=== PATIENT | male | born 1955 | race Caucasian/White ===

== ENCOUNTER → 2016-11-26 | Outpatient (CLI) | payer OTHER ==
[~2016-11-26] MED LIST: ALBUTEROL0.09 MG/A2 IH; ANUSOL-HC25 MG R; ASPIRIN1 POW PO; BIAXIN500 MG PO; COLCHICINE0.6 MG PO; COMBIVENT1 ARO IH; INDOCIN25 MG PO; ISOSORBIDE30 MG PO; KEFLEX500 MG PO; LEVOFLOXACIN500 MG PO; LISINOPRIL2.5 MG PO; MEDROL DOSEPAK4 MG PO; MOTRIN800 MG PO; NEXIUM40 MG PO; NITROGLYCERIN0.4 MG SL; PERCOCET 325 MG1 TA7 PO; PREDNICOT10 MG PO; TICAGRELOR PO; ZITHROMAX Z PA250 MG PO; ZOCOR40 MG PO; ZYLOPRIM100 MG PO
[2016-11-26 09:00] LABS: HEMATOCRIT 43.1 % (42.0-52.0); HEMOGLOBIN 14.3 g/dl (14.0-18.0); MEAN CELL VOLUME 94.5 fl (80.0-94.0); MEAN CORPUSCULAR HGB 31.4 pg (27.0-31.0); MEAN CORPUSCULAR HGB CONC 33.2 g/dl (33.0-37.0); RED BLOOD COUNT 4.56 10*6/uL (4.50-5.90); RED CELL DISTRI WIDTH 13.2 % (0-14.5); WHITE BLOOD COUNT 4.9 10*3/uL (4.8-10.8)
[2016-11-26 09:33] LABS: ALKALINE PHOSPHATASE 61 U/L (45-117); BUN 23 mg/dl (7-24); CHLORIDE 107 mmol/L (98-107); CHOLESTEROL 198 mg/dL (<200); CREATININE 1.18 mg/dL (0.70-1.30); HDL CHOLESTEROL 45 mg/dl (40-60); LDL CHOLESTEROL 102 mg/dL (9-159); POTASSIUM 4.2 mmol/L (3.5-5.1); SGOT/AST 24 IU/L (3-35); SGPT/ALT 33 U/L (12-78); SODIUM 144 mmol/L (136-145); TOTAL PROTEIN 7.8 gm/dL (6.4-8.2); TRIGLYCERIDES 256 mg/dl (<150); VLDL CHOLESTEROL 51 mg/dL (6-40)
[2016-11-26 09:39] LABS: THYROID STIM HORMONE (HS) 0.375 uIU/ml (0.358-4.75)
[2016-11-26 10:13] LABS: VITAMIN D, 25-HYDROXY 26.5 ng/mL (30-100)
== END | disposition home or self-care (01) ==
LOC: LAB 08:17
PROVIDERS: Internal Medicine
DX: E78.2 Mixed hyperlipidemia (principal); I25.10 Atherosclerotic heart disease of native coronary artery without angina pectoris; M10.9 Gout, unspecified; E55.9 Vitamin D deficiency, unspecified

== ENCOUNTER → 2017-07-24 | Outpatient (CLI) | payer OTHER | END | disposition home or self-care (01) | LOC: LAB 10:28 | DX: R10.84 Generalized abdominal pain (principal) ==

== ENCOUNTER → 2018-07-24 | Outpatient (CLI) | payer OTHER | END | disposition home or self-care (01) | LOC: RAD 10:51 | DX: M47.892 Other spondylosis, cervical region (principal); R20.0 Anesthesia of skin ==

== ENCOUNTER 2018-10-21 12:29 | Inpatient (IN) | payer OTHER ==
[~2018-10-21] VITALS: Ht 177.8 cm; Wt 88.5 kg
[2018-10-21 12:32] VITALS: BP 136/98
[2018-10-21 12:49] LABS: BASO % 0.3 % (0.0-1.0); EOS % 0.4 % (1.0-4.0); HEMATOCRIT 43.3 % (42.0-52.0); HEMOGLOBIN 14.9 g/dl (14.0-18.0); LYMPH # 1.5 10*3/uL (1.3-4.4); LYMPH % 19.7 % (27.0-41.0); MEAN CELL VOLUME 93.7 fl (80.0-94.0); MEAN CORPUSCULAR HGB 32.3 pg (27.0-31.0); MEAN CORPUSCULAR HGB CONC 34.4 g/dl (33.0-37.0); MEAN PLATELET VOLUME 9.9 fl (9.6-12.3); MONO # 0.5 10*3/uL (0.1-1.0); MONO % 6.2 % (3.0-9.0); NEUT # 5.6 10*3/uL (2.3-7.9); NEUT % 72.9 % (47.0-73.0); PLATELET COUNT AUTOMATED 270 10*3/uL (130-400); RED BLOOD COUNT 4.62 10*6/uL (4.50-5.90); RED CELL DISTRI WIDTH 13.2 % (0-14.5); WHITE BLOOD COUNT 7.6 10*3/uL (4.8-10.8)
[2018-10-21 13:00] LABS: ACT PARTIAL THROMBO TIME 23.1 SECONDS (20.0-32.1); ALBUMIN 4.5 gm/dl (3.1-4.5); BUN 20 mg/dl (7-24); CHLORIDE 105 mmol/L (98-107); CREATININE 1.34 mg/dL (0.70-1.30); INTERNATIONAL NORM RATIO 0.9 (2.0-3.5); POTASSIUM 4.2 mmol/L (3.5-5.1); SGOT/AST 17 IU/L (3-35); SGPT/ALT 33 U/L (12-78); SODIUM 137 mmol/L (136-145); TOTAL PROTEIN 8.5 gm/dL (6.4-8.2)
[2018-10-21 13:04] LABS: ALKALINE PHOSPHATASE 64 U/L (45-117); TROPONIN I < 0.015 ng/ml (<0.045)
[2018-10-21 13:36] VITALS: BP 138/88
[2018-10-21 14:16] VITALS: BP 133/90
[2018-10-21 16:00] VITALS: BP 137/73
[2018-10-21] MEDS ORDERED: ALLOPURINOL100 MG PO (17:15)
[2018-10-21 20:00] VITALS: BP 116/69
[2018-10-22] VITALS: BP 102/71
== END 2018-10-22 05:48 | disposition short-term general hospital (02) | DRG 280 ==
LOC: ED 12:29 → 5E 13:32 → EDHOLD 13:32 → 5E 14:06
PROVIDERS: Emergency Medicine; ADMIT Internal Medicine
DX: I21.4 Non-ST elevation (NSTEMI) myocardial infarction (principal); N17.0 Acute kidney failure with tubular necrosis; E78.5 Hyperlipidemia, unspecified; I25.110 Atherosclerotic heart disease of native coronary artery with unstable angina pectoris; R00.1 Bradycardia, unspecified; K21.9 Gastro-esophageal reflux disease without esophagitis; M10.9 Gout, unspecified; Z95.5 Presence of coronary angioplasty implant and graft; Z87.891 Personal history of nicotine dependence; Z83.3 Family history of diabetes mellitus; I25.2 Old myocardial infarction; Z79.82 Long term (current) use of aspirin

== ENCOUNTER → 2018-12-18 | Outpatient (CLI) | payer OTHER ==
[~2018-12-18] MED LIST changes: +ALLOPURINOL100 MG PO
== END | disposition home or self-care (01) ==
LOC: CARD 07:59
DX: I25.10 Atherosclerotic heart disease of native coronary artery without angina pectoris (principal); I11.9 Hypertensive heart disease without heart failure

== ENCOUNTER 2019-12-18 05:08 | Emergency (ER) | payer OTHER ==
[~2019-12-18] VITALS: Ht 170.1 cm; Wt 83.9 kg
[2019-12-18] MEDS ORDERED: AUGMENTIN 875875 MG PO (05:34)
== END 2019-12-18 05:55 | disposition home or self-care (01) ==
LOC: ED 05:08
DX: J01.90 Acute sinusitis, unspecified (principal); J06.9 Acute upper respiratory infection, unspecified; J02.9 Acute pharyngitis, unspecified; Z79.899 Other long term (current) drug therapy; Z79.82 Long term (current) use of aspirin; Z20.828 Contact with and (suspected) exposure to other viral communicable diseases

== ENCOUNTER → 2020-01-28 | Outpatient (CLI) | payer OTHER ==
[~2020-01-28] MED LIST changes: +AUGMENTIN 875875 MG PO
== END | disposition home or self-care (01) ==
LOC: COVID19 15:44
PROVIDERS: ATTEND Physician Assistant
DX: U07.1 COVID-19 (principal); R69 Illness, unspecified

== ENCOUNTER → 2022-07-12 | Outpatient (CLI) | payer MEDICARE ==
[2022-07-12 09:33] LABS: HEMATOCRIT 41.3 % (42.0-52.0); MEAN CELL VOLUME 95.6 fl (80.0-94.0); MEAN CORPUSCULAR HGB 31.7 pg (27.0-31.0); MEAN CORPUSCULAR HGB CONC 33.2 g/dl (33.0-37.0); MEAN PLATELET VOLUME 9.8 fl (9.6-12.3); RED BLOOD COUNT 4.32 10*6/uL (4.50-5.90); RED CELL DISTRI WIDTH 13.7 % (0-14.5)
[2022-07-12 10:06] LABS: ALKALINE PHOSPHATASE 58 U/L (46-116); BUN 13 mg/dl (9-23); CHLORIDE 107 mmol/L (98-107); CHOLESTEROL 119 mg/dL (<200); LDL CHOLESTEROL 64 mg/dL (9-159); POTASSIUM 4.4 mmol/L (3.4-5.1); SGPT/ALT 31 U/L (10-49); TOTAL PROTEIN 7.3 gm/dL (6.0-8.0); TRIGLYCERIDES 78 mg/dl (<150)
[2022-07-12 10:44] LABS: FREE T4 0.97 ng/dl (0.89-1.76)
== END | disposition home or self-care (01) ==
LOC: LAB 08:49
PROVIDERS: ATTEND Physician Assistant
DX: Z12.5 Encounter for screening for malignant neoplasm of prostate (principal); I10 Essential (primary) hypertension; E78.2 Mixed hyperlipidemia; E55.9 Vitamin D deficiency, unspecified; R73.9 Hyperglycemia, unspecified; Z87.891 Personal history of nicotine dependence; Z13.6 Encounter for screening for cardiovascular disorders

== ENCOUNTER → 2022-07-22 | Outpatient (CLI) | payer MEDICARE ==
[~2022-07-22] MED LIST changes: +BRILINTA60 MG PO; +LIPITOR40 MG PO; +TOPROL XL25 MG PO; +VASCEPA1 G1 PO
== END | disposition home or self-care (01) ==
LOC: CARD 07:48
PROVIDERS: ATTEND Internal Medicine Cardiovascular Disease
DX: R94.39 Abnormal result of other cardiovascular function study (principal); R94.31 Abnormal electrocardiogram [ECG] [EKG]; R00.1 Bradycardia, unspecified; I47.20 Ventricular tachycardia, unspecified

== ENCOUNTER 2022-07-25 10:29 | Inpatient (IN) | payer MEDICARE ==
[~2022-07-25] VITALS: Ht 170.1 cm; Wt 86.0 kg
[2022-07-25 10:39] VITALS: BP 113/78
[2022-07-25] MEDS ORDERED: VIBRAMYCIN100 MG PO (10:51)
[2022-07-25] MEDS ORDERED: JARDIANCE10 MG PO (10:52)
[2022-07-25 11:29] LABS: BASO % 0.2 % (0.0-1.0); LYMPH # 1.1 10*3/uL (1.3-4.4); LYMPH % 8.9 % (27.0-41.0); MEAN CELL VOLUME 93.7 fl (80.0-94.0); MEAN CORPUSCULAR HGB 31.6 pg (27.0-31.0); MEAN CORPUSCULAR HGB CONC 33.7 g/dl (33.0-37.0); MEAN PLATELET VOLUME 9.6 fl (9.6-12.3); MONO # 0.7 10*3/uL (0.1-1.0); MONO % 5.9 % (3.0-9.0); NEUT % 84.7 % (47.0-73.0); PLATELET COUNT AUTOMATED 254 10*3/uL (130-400); RED BLOOD COUNT 4.59 10*6/uL (4.50-5.90); RED CELL DISTRI WIDTH 13.2 % (0-14.5); WHITE BLOOD COUNT 11.8 10*3/uL (4.8-10.8)
[2022-07-25 11:43] LABS: ACT PARTIAL THROMBO TIME 27.4 SECONDS (20.0-32.1)
[2022-07-25 11:55] LABS: ALKALINE PHOSPHATASE 75 U/L (46-116); BUN 15 mg/dl (9-23); CHLORIDE 96 mmol/L (98-107); LIPASE 35 U/L (12-53); POTASSIUM 4.1 mmol/L (3.4-5.1); SGPT/ALT 22 U/L (10-49); TOTAL PROTEIN 8.4 gm/dL (6.0-8.0)
[2022-07-25 18:17] VITALS: BP 120/74
[2022-07-25 18:36] LABS: BILIRUBIN Negative (Negative); BLOOD Negative (Negative); CLARITY Clear (Clear); COLOR Yellow (Yellow); GLUCOSE 3+ (Negative); KETONE 1+ (Negative); LEUKO ESTERASE Negative (Negative); NITRITE Negative (Negative); SPECIFIC GRAVITY >= 1.030 (1.001-1.030)
[2022-07-25 18:56] LABS: BACTERIA TRACE; EPITHELIAL CELLS 0-2; RBC 0-2 rbc/hpf (0-2); WBC 0-2 wbc/hpf (0-5)
[2022-07-26] VITALS (10 sets, daily range): BP systolic 104–129; BP diastolic 60–83
[2022-07-26 06:13] LABS: BASO % 0.2 % (0.0-1.0); EOS % 0.1 % (1.0-4.0); HEMATOCRIT 38.4 % (42.0-52.0); LYMPH # 1.4 10*3/uL (1.3-4.4); LYMPH % 11.5 % (27.0-41.0); MEAN CELL VOLUME 93.7 fl (80.0-94.0); MEAN CORPUSCULAR HGB CONC 34.1 g/dl (33.0-37.0); MEAN PLATELET VOLUME 9.5 fl (9.6-12.3); MONO # 0.9 10*3/uL (0.1-1.0); MONO % 7.8 % (3.0-9.0); NEUT # 9.4 10*3/uL (2.3-7.9); NEUT % 79.8 % (47.0-73.0); PLATELET COUNT AUTOMATED 255 10*3/uL (130-400); RED CELL DISTRI WIDTH 13.2 % (0-14.5); WHITE BLOOD COUNT 11.8 10*3/uL (4.8-10.8)
[2022-07-26 07:02] LABS: ALKALINE PHOSPHATASE 72 U/L (46-116); BUN 12 mg/dl (9-23); CHLORIDE 100 mmol/L (98-107); POTASSIUM 3.9 mmol/L (3.4-5.1); SGPT/ALT 20 U/L (10-49); TOTAL PROTEIN 7.7 gm/dL (6.0-8.0)
[2022-07-26] MEDS ORDERED: ONDANSETRON HYDR4 M1 PO ×2 (12:25)
[2022-07-26] MEDS ORDERED: COLACE100 MG PO ×2 (12:25)
[2022-07-26] MEDS ORDERED: HYDROCODONE-AC1 EAC1 PO ×2 (12:25)
[2022-07-27] VITALS: BP 143/63
[2022-07-27 06:07] LABS: BASO % 0.2 % (0.0-1.0); EOS % 0.2 % (1.0-4.0); HEMATOCRIT 38.1 % (42.0-52.0); LYMPH # 1.4 10*3/uL (1.3-4.4); LYMPH % 14.3 % (27.0-41.0); MEAN CORPUSCULAR HGB 31.9 pg (27.0-31.0); MEAN CORPUSCULAR HGB CONC 33.6 g/dl (33.0-37.0); MEAN PLATELET VOLUME 9.6 fl (9.6-12.3); MONO # 0.8 10*3/uL (0.1-1.0); MONO % 8.2 % (3.0-9.0); NEUT # 7.6 10*3/uL (2.3-7.9); NEUT % 76.4 % (47.0-73.0); PLATELET COUNT AUTOMATED 256 10*3/uL (130-400); RED BLOOD COUNT 4.01 10*6/uL (4.50-5.90); RED CELL DISTRI WIDTH 13.2 % (0-14.5)
[2022-07-27 08:00] VITALS: BP 118/73
[2022-07-27 08:56] LABS: BUN 11 mg/dl (9-23); CHLORIDE 101 mmol/L (98-107); POTASSIUM 4.1 mmol/L (3.4-5.1)
[2022-07-27 12:00] VITALS: BP 116/77
[2022-07-27 16:00] VITALS: BP 105/62
[2022-07-27 20:00] VITALS: BP 102/68
[2022-07-28] VITALS: BP 112/67
[2022-07-28 07:41] LABS: HEMATOCRIT 38.4 % (42.0-52.0); MEAN CELL VOLUME 94.1 fl (80.0-94.0); MEAN CORPUSCULAR HGB 32.4 pg (27.0-31.0); MEAN CORPUSCULAR HGB CONC 34.4 g/dl (33.0-37.0); MEAN PLATELET VOLUME 8.9 fl (9.6-12.3); PLATELET COUNT AUTOMATED 273 10*3/uL (130-400); RED BLOOD COUNT 4.08 10*6/uL (4.50-5.90); RED CELL DISTRI WIDTH 13.2 % (0-14.5); WHITE BLOOD COUNT 6.9 10*3/uL (4.8-10.8)
[2022-07-28 07:46] LABS: MANUAL DIFF REFLEX YES
[2022-07-28 08:00] VITALS: BP 126/73
[2022-07-28 08:06] LABS: BASOPHILS 1 % (0-1); PLATELET SUFFICIENCY NORMAL (NORMAL); TOTAL CELLS COUNTED 100 #CELLS
[2022-07-28 08:17] LABS: BUN 11 mg/dl (9-23); CHLORIDE 103 mmol/L (98-107)
[2022-07-28] MEDS ORDERED: LEVOFLOXACIN750 M2 PO ×4 (11:51→11:56)
[2022-07-28] MEDS ORDERED: METRONIDAZOLE500 M1 PO ×4 (11:51→11:56)
[2022-07-28] MEDS ORDERED: HYDROCODONE-AC1 EAC1 PO ×2 (11:56→11:57)
[2022-07-28] MEDS ORDERED: ONDANSETRON4 MG SL ×2 (11:56)
[2022-07-28] MEDS ORDERED: COLACE100 MG PO ×2 (11:56)
[2022-07-28 12:00] VITALS: BP 111/80
[2022-07-29] MEDS ORDERED: METRONIDAZOLE500 M1 PO (10:40)
[2022-07-29] MEDS ORDERED: ONDANSETRON4 MG SL (10:40)
[2022-07-29] MEDS ORDERED: LEVOFLOXACIN750 M2 PO (10:40)
[2022-07-29] MEDS ORDERED: COLACE100 MG PO (10:40)
== END 2022-07-28 13:21 | disposition home or self-care (01) | DRG 854 ==
LOC: ED 10:29 → EDHOLD 13:55 → 4E 07-26 13:53
PROVIDERS: Emergency Medicine; Family Medicine; Internal Medicine Infectious Disease; Occupational Therapist; Student in an Organized Health Care Education/Training Program; ADMIT Internal Medicine; ATTEND Internal Medicine
PROC: 0JB90ZZ Excision of Buttock Subcutaneous Tissue and Fascia, Open Approach (ICD-10-PCS; principal; 2022-07-26)
DX: A41.9 Sepsis, unspecified organism (principal); E87.1 Hypo-osmolality and hyponatremia; K61.1 Rectal abscess; K61.4 Intrasphincteric abscess; E87.8 Other disorders of electrolyte and fluid balance, not elsewhere classified; E13.65 Other specified diabetes mellitus with hyperglycemia; E88.09 Other disorders of plasma-protein metabolism, not elsewhere classified; I44.0 Atrioventricular block, first degree; G89.18 Other acute postprocedural pain; K76.0 Fatty (change of) liver, not elsewhere classified; K57.30 Diverticulosis of large intestine without perforation or abscess without bleeding; K62.89 Other specified diseases of anus and rectum; I25.10 Atherosclerotic heart disease of native coronary artery without angina pectoris; Z95.5 Presence of coronary angioplasty implant and graft; I25.2 Old myocardial infarction; Z83.3 Family history of diabetes mellitus; Z79.899 Other long term (current) drug therapy; Z79.1 Long term (current) use of non-steroidal anti-inflammatories (NSAID)